=== PATIENT | female | born 1960 | race Caucasian/White ===

== ENCOUNTER 2020-11-23 05:47 | Emergency (ER) | payer BC, MEDICAID ==
[2020-11-23] MEDS: Aspirin 81 MG Tab.Chew PO ONE (05:50)
[2020-11-23] MEDS: Nitroglycerin 0.4 MG Tab.SL SL PRN (05:57)
[2020-11-23] MEDS: Morphine 2 MG/ML SYRINGE IVPUSH ONE (05:58)
--- NOTE | 2020-11-23 07:10 | EDM.PDOC ---
ED HPI GENERAL MEDICAL PROBLEM - General Chief Complaint: Chest Pain Stated Complaint: CHEST PAINS Time Seen by Provider: 11/23/20 05:50 - History of Present Illness INITIAL COMMENTS - FREE TEXT/NARRATIVE: Pt is here with C/O episodes of chest pain. Started Wednesday. Seems to happen early and late in the day. Tonite her pain was worse with bilateral chest pain going into her jaw. She is not nauseated, no cough or SOB. And had not been sick lately. No Hx of CAD. She is a smoker. Her pain / symptoms resolved before reaching the ER tonite. She states she took doris seltzer once for an earlier episode and it worked well. - Related Data Allergies Allergy/AdvReac Type Severity Reaction Status Date / Time azithromycin Allergy Swelling Verified 11/23/20 06:23 Sulfa (Sulfonamide Allergy Swelling Verified 11/23/20 06:21 Antibiotics) tramadol Allergy Other Verified 11/23/20 06:22 Home Meds: Home Meds HCTZ/Triamterene [Dyazide 25-37.5 MG] 1 cap PO DAILY 11/23/20 [History] Levothyroxine Sodium [Synthroid] 150 mcg PO DAILY 11/23/20 [History] Losartan [Cozaar] 25 mg PO DAILY 11/23/20 [History] Zonisamide [Zonegran] 100 mg PO DAILY 11/23/20 [History] ED ROS GENERAL - Review of Systems Review Of Systems: Comprehensive ROS is negative, except as noted in HPI. Cardiovascular: Reports: Chest Pain ED EXAM, GENERAL - Physical Exam Exam: See Below Free Text/Narrative:: Pt is awake and alert. no respiratory distress. V.S. are reviewed and are nml. Lungs are clear with good A/E. Cardiac S1,S2 present, RRR. No murmur noted. skin is warm and dry. For remaining details see appropriate Medite[employer] section. Course - Orders/Labs/Meds Orders: Active Orders 24 hr Category Date Time Status EKG Documentation Completion [RC] ASDIRECTED Care 11/23/20 05:58 Ordered Chest 1V Frontal [CR] Stat Exams 11/23/20 06:06 Ordered Nitroglycerin [Nitrostat] Med 11/23/20 05:57 Ordered 0.4 mg SL Q5M PRN Medication Orders Nitroglycerin (Nitroglycerin 0.4 Mg Tab.Sl) 0.4 mg SL Q5M PRN PRN Reason: Chest Pain Labs: Laboratory Tests 11/23/20 11/23/20 11/23/20 Range/Units 06:00 06:00 06:10 WBC (4.0-11.0) K/uL RBC (3.80-5.80) M/uL Hgb (11.5-16.5) g/dL Hct (37.0-47.0) % MCV (76-96) fL MCH (27.0-32.0) pg MCHC (31.0-35.0) g/dL RDW (11.0-16.0) % Plt Count (150-500) K/uL MPV (6.0-10.0) fL Neut % (Auto) (45.0-70.0) % Lymph % (Auto) (20.0-40.0) % Schley % (Auto) (3.0-10.0) % Eos % (Auto) (1.0-5.0) % Baso % (Auto) (0.0-0.5) % Neut # (Auto) (2.00-7.50) K/uL Lymph # (Auto) (1.50-4.00) K/uL Schley # (Auto) (0.20-0.80) K/uL Eos # (Auto) (0.04-0.40) K/uL Baso # (Auto) (0.02-0.10) K/uL PT 9.9 (9.0-11.5) sec INR 1.0 (1.0-3.5) Sodium 144 (136-145) mmol/L Potassium 3.3 L (3.5-5.1) mmol/L Chloride 110 H (98-107) mmol/L Carbon Dioxide 25.6 (21.0-32.0) mmol/L Anion Gap 11.7 (5.0-15.0) mmol/L BUN 11 (8-26) mg/dL Creatinine 0.74 (0.55-1.02) mg/dL Est Cr Clr Drug Dosing TNP Estimated GFR (MDRD) > 60 (>60) MLS/MIN BUN/Creatinine Ratio 14.9 (6-25) Glucose 99 (74-100) mg/dL Calcium 8.3 L (8.5-10.1) mg/dL Total Bilirubin 0.3 (0.0-1.0) mg/dL AST 17 (15-37) U/L ALT 24 (12-78) U/L Alkaline Phosphatase 117 H (46-116) U/L Troponin I 0.027 (0.000-0.060) ng/mL Total Protein 7.1 (6.4-8.2) g/dL Albumin 3.6 (3.4-5.0) g/dL Globulin 3.5 (2.2-4.2) g/dL Albumin/Globulin Ratio 1.0 (0.8-2.0) 11/23/20 Range/Units 06:20 WBC 5.5 (4.0-11.0) K/uL RBC 4.24 (3.80-5.80) M/uL Hgb 13.8 (11.5-16.5) g/dL Hct 40.7 (37.0-47.0) % MCV 96 (76-96) fL MCH 32.5 H (27.0-32.0) pg MCHC 33.9 (31.0-35.0) g/dL RDW 12.9 (11.0-16.0) % Plt Count 255 (150-500) K/uL MPV 10.3 H (6.0-10.0) fL Neut % (Auto) 50.2 (45.0-70.0) % Lymph % (Auto) 33.4 (20.0-40.0) % Schley % (Auto) 10.3 H (3.0-10.0) % Eos % (Auto) 5.4 H (1.0-5.0) % Baso % (Auto) 0.7 H (0.0-0.5) % Neut # (Auto) 2.78 (2.00-7.50) K/uL Lymph # (Auto) 1.85 (1.50-4.00) K/uL Schley # (Auto) 0.57 (0.20-0.80) K/uL Eos # (Auto) 0.30 (0.04-0.40) K/uL Baso # (Auto) 0.04 (0.02-0.10) K/uL PT (9.0-11.5) sec INR (1.0-3.5) Sodium (136-145) mmol/L Potassium (3.5-5.1) mmol/L Chloride (98-107) mmol/L Carbon Dioxide (21.0-32.0) mmol/L Anion Gap (5.0-15.0) mmol/L BUN (8-26) mg/dL Creatinine (0.55-1.02) mg/dL Est Cr Clr Drug Dosing Estimated GFR (MDRD) (>60) MLS/MIN BUN/Creatinine Ratio (6-25) Glucose (74-100) mg/dL Calcium (8.5-10.1) mg/dL Total Bilirubin (0.0-1.0) mg/dL AST (15-37) U/L ALT (12-78) U/L Alkaline Phosphatase (46-116) U/L Troponin I (0.000-0.060) ng/mL Total Protein (6.4-8.2) g/dL Albumin (3.4-5.0) g/dL Globulin (2.2-4.2) g/dL Albumin/Globulin Ratio (0.8-2.0) Meds: Medications Generic Name Dose Route Start Last Admin Trade Name Freq PRN Reason Stop Dose Admin Nitroglycerin 0.4 mg 11/23/20 05:57 Nitroglycerin 0.4 Mg Tab.Sl SL Q5M PRN Chest Pain Discontinued Medications Generic Name Dose Route Start Last Admin Trade Name Freq PRN Reason Stop Dose Admin Morphine Sulfate 2 mg 11/23/20 05:58 Morphine 2 Mg/Ml Syringe IVPUSH 11/23/20 05:59 ONETIME ONE - Re-Assessments/Exams Free Text/Narrative Re-Assessment/Exam: 11/23/20 07:10 Pt was given 1 Nitro before we realized she was not currently having chest pain. She now tells us the pain resolved before reaching the ER. ASA 4 tabs were also given. Pt remained asymptomatic. EKG and labs are ok. K+ slightly low. She will be discharged with Nitro to take prn. And she will start taking OTC Prilosec. Baby ASA daily. She is to follow up with her PCP in [place] early next week. Follow up sooner as needed. Departure - Departure Time of Disposition: 07:05 Disposition: Home, Self-Care 01 Condition: Good Clinical Impression: Chest pain of unknown etiology - My Orders Last 24 Hours: My Active Orders 11/23/20 05:57 Nitroglycerin [Nitrostat] 0.4 mg SL Q5M PRN 11/23/20 05:58 EKG Documentation Completion [RC] ASDIRECTED 11/23/20 06:06 Chest 1V Frontal [CR] Stat - Assessment/Plan Last 24 Hours: My Active Orders 11/23/20 05:57 Nitroglycerin [Nitrostat] 0.4 mg SL Q5M PRN 11/23/20 05:58 EKG Documentation Completion [RC] ASDIRECTED 11/23/20 06:06 Chest 1V Frontal [CR] Stat
--- NOTE | 2020-11-23 12:24 | CR ---
DATE OF SERVICE: 11/23/2020 CLINICAL DATA: Chest pain. PORTABLE CHEST: No priors. The heart size is normal. The lungs are clear. No pneumothorax. No pleural effusions. No evidence of acute intrathoracic disease. [id number] [facility]
== END 2020-11-23 07:04 | disposition home or self-care (01) ==
LOC: LB.ED 05:47
DX: R07.9 Chest pain, unspecified (principal); F17.200 Nicotine dependence, unspecified, uncomplicated; Z88.5 Allergy status to narcotic agent; Z88.2 Allergy status to sulfonamides; Z88.1 Allergy status to other antibiotic agents; Z79.899 Other long term (current) drug therapy
CPT/HCPCS: 36415; 71045; 80053; 84484; 85025; 85610; 93005; 99285; A9270